=== PATIENT | male | born 1980 | race Caucasian/White ===

== ENCOUNTER → 2016-09-01 | Outpatient (CLI) | payer MEDICARE, MEDICAID | END | disposition home or self-care (01) | LOC: RESC 05-09 13:00 → RAD.S 05-09 13:00 → RESC 05-25 13:00 → RAD.S 06-06 09:00 → RESC 06-06 13:00 | DX: D86.9 Sarcoidosis, unspecified (principal); R91.8 Other nonspecific abnormal finding of lung field; R59.0 Localized enlarged lymph nodes; J98.4 Other disorders of lung; J98.8 Other specified respiratory disorders ==